=== PATIENT | female | born 1955 | race Caucasian/White ===

== ENCOUNTER 2017-11-08 11:43 | Observation (INO) | payer BC ==
[2017-11-08] MEDS ORDERED: NS 0.9% 1000 ML* 1,000 ML IV ONE (12:43)
--- NOTE | 2017-11-08 13:46 | RAD ---
HISTORY: Chest pain COMPARISONS: CT dated February 17, 2014 VIEWS: 1: frontal portable view of the chest at 12:54 PM FINDINGS: LINES AND TUBES: None. CARDIOMEDIASTINAL SILHOUETTE: The cardiomediastinal silhouette is normal for portable technique. PLEURA: The costophrenic angles are sharp. No pleural abnormalities are noted. LUNG PARENCHYMA: There is stable right upper lung nodule. There is minimal patchy alveolar opacification of the left lung base. ABDOMEN: The upper abdomen is clear. There is no subphrenic gas. BONES AND SOFT TISSUES: No bone or soft tissue abnormalities are noted. IMPRESSION: 1. STABLE RIGHT UPPER LUNG NODULE. 2. PATCHY AIRSPACE DISEASE OF THE LEFT LUNG BASE
[2017-11-08 14:00] LABS: ABS Basophils 0 10^3/ul (0-0.2); ABS Eosinophils 0.1 10^3/ul (0-0.6); ABS Lymphocytes 1.6 10^3/ul (1.0-4.8); ABS Monocytes 0.6 10^3/ul (0-0.8); ABS Neutrophils 3.2 10^3/ul (1.5-7.7); ABS Nucleated RBC 0.02 10^3/ul; Hematocrit 42 % (35-47); Hemoglobin 14.1 g/dl (12.0-16.0); Lymphocyte % 29.6 % (25-47); Mean Corpuscular HGB Conc 34 g/dl (31-36); Mean Corpuscular Hemoglobin 30 pg (27-31); Mean Corpuscular Volume 90 fL (80-97); Mean Platelet Volume 8 um3 (7.4-10.4); Nucleated Red Blood Cells % 0.3; Platelet Count 317 10^3/ul (150-450); Red Blood Count 4.63 10^6/ul (4.0-5.4); Red Cell Distribution Width 14 % (10.5-15); White Blood Count 5.5 10^3/ul (3.5-10.8)
[2017-11-08 14:02] LABS: Urine Appearance Clear; Urine Blood Negative (Negative); Urine Color Straw; Urine Ketones Negative (Negative); Urine Protein Negative (Negative); Urine Specific Gravity 1.005 (1.010-1.030); Urine Urobilinogen Negative (Negative)
[2017-11-08 14:15] LABS: INR 0.95 (0.77-1.02)
[2017-11-08 14:17] LABS: EGFR Non-African American 61.5 (>60)
[2017-11-08] MEDS ORDERED: Iohexol 300* (CONTRAST) 10 ML SDV IV ONE (14:27)
--- NOTE | 2017-11-08 15:11 | RAD ---
INDICATION: Abdominal distention and pain. COMPARISON: Comparison is made with a prior PET/CT study from February 24, 2014. TECHNIQUE: A CT scan of the abdomen and pelvis was performed with intravenous and oral contrast following intravenous injection of 139 ml of Omnipaque 300 nonionic contrast. Contiguous axial sections were obtained from the lung bases through the symphysis pubis. Images were reconstructed in the coronal and sagittal planes. FINDINGS: The lung bases are clear. No pleural effusion is present. The liver and spleen are normal in size. The liver is decreased in attenuation consistent with fatty infiltration. There is a small nonspecific fluid density lesion in the posterior segment of the right hepatic lobe measuring 0.9 x 0.5 cm in size. This is too small to characterize by CT although likely represents a cyst. There are gallstones present. No gallbladder wall thickening or pericholecystic fluid is seen. The pancreas appears to be within normal limits. There is a small left adrenal lesion measuring 1.1 x 0.9 cm in size which is unchanged from the prior PET/CT study. This was not PET avid and would be most consistent with an adenoma. The kidneys are normal in size. No significant focal renal abnormality or hydronephrosis is seen. No bladder calculi are noted. The aorta is normal in caliber with mild calcific plaque present. No significant enlarged retroperitoneal lymph nodes are seen. The stomach, small and large bowel appear nondistended. The appendix is not visualized. There is mild sigmoid diverticulosis. There is no evidence for diverticulitis or colitis. The patient is status post hysterectomy. No free intraperitoneal air or fluid is seen. No significant focal osseous abnormality is seen. IMPRESSION: 1. CHOLELITHIASIS WITHOUT EVIDENCE FOR ACUTE CHOLECYSTITIS. 2. HEPATIC STEATOSIS. 3. STATUS POST HYSTERECTOMY. 4. STABLE LEFT ADRENAL NODULE.
[2017-11-08] MEDS ORDERED: Aspirin Low Dose CHEW TAB* 81 MG PO ONE (15:35)
[2017-11-08] MEDS ORDERED: Metoprolol Tartrate TAB* 25 MG PO ONE (16:20)
[2017-11-08] MEDS ORDERED: Nitroglycerin TAB 0.4 MG* 0.4 MG TAB SL ONE (16:32)
--- NOTE | 2017-11-08 16:42 | ADMNOTE ---
Subjective Date of Service: 11/08/17 Interval History: ADMISSION HISTORY AND PHYSICAL EXAM: Allergies Allergy/AdvReac Type Severity Reaction Status Date / Time No Known Allergies Allergy Verified 02/17/14 08:25 Home Medications Medication Instructions Recorded Confirmed Type Glucosamine Sulfate 100 mg PO QPM 02/16/13 11/08/17 History Hydrochlorothiazide TAB* 25 mg PO DAILY 02/16/13 11/08/17 History [Hydrodiuril TAB*] Losartan TAB* [Cozaar TAB*] 100 mg PO DAILY 02/16/13 11/08/17 History Montelukast Sodium TAB* [Singulair 10 mg PO BEDTIME 02/16/13 11/08/17 History TAB*] Aspirin EC Low Dose* [Ecotrin EC 81 mg PO DAILY 11/08/17 11/08/17 History Low Dose 81 MG*] Fluticasone HFA 110 mcg(NF) 1 puff INH BID 11/08/17 11/08/17 History [Flovent HFA 110 mcg(NF)] Multivitamins/Minerals TAB* 1 tab PO DAILY 11/08/17 11/08/17 History [Theragran/minerals TAB*] Nisoldipine ER (NF) [Sular (NF)] 34 mg PO DAILY 11/08/17 11/08/17 History Potassium Chloride [Potassium 48 meq PO DAILY 11/08/17 11/08/17 History Chloride ER] Simvastatin TAB(NF) [Zocor(NF)] 20 mg PO DAILY 11/08/17 11/08/17 History HPI: 1 1/2 weeks abd bloating. Continues to work at cleaning houses, worked today. Not related to eating, activity, sleep. Sleeps flat with one pillow. Occ bad taste in her mouth. 15 minutes BL neck pressure/discomfort in ED. Family History: Findings - unremarkable Social History: Findings - Lives alone. Son Rajiv is her SDM. 4 children. No alcohol or tobacco use. Past Medical History: Findings - x4, hysterecomy, R ankle surgery. LBBB for many yrs, sees Dr. Villalobos Review of Systems - Measurements Intake and Output: Intake and Output Last 24 Hours 11/06/17 11/07/17 11/08/17 11/09/17 06:59 06:59 06:59 06:59 Weight 230 lb Objective Active Medications: Aspirin (Aspirin Ec Low Dose*) 81 mg PO DAILY [facility] Aspirin (Aspirin Low Dose Tab*) 81 mg PO DAILY [facility] Enoxaparin Sodium (Lovenox(*)) 40 mg SUBCUT Q24H [facility] Fluticasone Propionate (Flovent Hfa 110 Mcg(Nf)) 1 puff INH BID [facility] Hydrochlorothiazide (Hydrodiuril Tab*) 25 mg PO DAILY [facility] Sodium Chloride (Ns 0.9% 1000 Ml*) 1,000 mls @ 200 mls/hr IV ED ONCE ONE Stop: 11/08/17 17:42 Last Admin: 11/08/17 13:48 Dose: 200 mls/hr Losartan Potassium (Cozaar Tab*) 100 mg PO DAILY [facility] Montelukast Sodium (Singulair Tab*) 10 mg PO BEDTIME [facility] Nisoldipine (Sular (Nf)) 34 mg PO DAILY [facility] Simvastatin (Zocor(Nf)) 20 mg PO BEDTIME [facility] Vital Signs - 8 hr 11/08/17 11/08/17 11/08/17 11:43 12:04 12:06 Temperature 97.4 F Pulse Rate 103 93 91 Respiratory 20 12 13 Rate Blood Pressure 192/94 135/65 (mmHg) O2 Sat by Pulse 99 97 98 Oximetry 11/08/17 11/08/17 11/08/17 12:30 13:00 14:00 Temperature Pulse Rate 85 83 88 Respiratory 14 10 14 Rate Blood Pressure 138/61 138/77 (mmHg) O2 Sat by Pulse 93 98 99 Oximetry 11/08/17 11/08/17 11/08/17 14:41 14:55 15:00 Temperature Pulse Rate 90 105 Respiratory 16 20 Rate Blood Pressure 153/71 146/61 (mmHg) O2 Sat by Pulse 91 98 Oximetry Result Diagrams: 11/08/17 13:50 11/08/17 13:50 Assess/Plan/Problems-Billing Assessment: - Patient Problems (1) Chest pain Current Visit: Yes Status: Acute Code(s): R07.9 - CHEST PAIN, UNSPECIFIED SNOMED Code(s): 60891534 Comment: Atypical pain. Sedentary life style. Tele, second troponin, nuclear stress test 11/09. (2) Asthma Current Visit: Yes Status: Acute Code(s): J45.909 - UNSPECIFIED ASTHMA, UNCOMPLICATED SNOMED Code(s): 024292438 Comment: Stable. Continue home meds. (3) Morbid obesity Current Visit: Yes Status: Acute Code(s): E66.01 - MORBID (SEVERE) OBESITY DUE TO EXCESS CALORIES SNOMED Code(s): 166828697 Comment: BMI 40.3. (4) HTN (hypertension) Current Visit: Yes Status: Acute Code(s): I10 - ESSENTIAL (PRIMARY) HYPERTENSION SNOMED Code(s): 16868229 Comment: Continue home meds.
[2017-11-08] MEDS ORDERED: Enoxaparin(*) 40 MG/0.4 ML SYR SUBCUT SCH (17:00)
[2017-11-08] MEDS ORDERED: Aspirin Low Dose CHEW TAB* 81 MG ONE (17:07)
[2017-11-08] MEDS ORDERED: Mometasone 220 MCG MDI INH SCH (18:00)
[2017-11-08] MEDS: Omeprazole CAP* 20 MG PO SCH (19:36)
[2017-11-08] MEDS ORDERED: NS 0.9% 500 ML* 500 ML IV ONE (20:53)
[2017-11-08] MEDS ORDERED: NS 0.9% 1000 ML* 1,000 ML IV SCH (21:00)
[2017-11-08] MEDS ORDERED: Montelukast Sodium TAB* 10 MG PO SCH (21:00)
[2017-11-08] MEDS ORDERED: Atorvastatin* 10 MG TAB PO SCH (21:00)
[2017-11-09] MEDS: Omeprazole CAP* 20 MG PO SCH (05:07)
[2017-11-09] MEDS ORDERED: NISOLDIPINE 17 MG PO SCH (09:00)
[2017-11-09] MEDS ORDERED: Aspirin Low Dose CHEW TAB* 81 MG PO SCH (09:00)
[2017-11-09] MEDS ORDERED: Losartan TAB* 25 MG PO SCH (09:00)
[2017-11-09] MEDS ORDERED: Hydrochlorothiazide TAB* 25 MG PO SCH (09:00)
[2017-11-09] MEDS ORDERED: Aspirin EC Low Dose* 81 MG TAB.EC PO SCH (09:00)
--- NOTE | 2017-11-09 11:39 | RAD ---
Edited for charges. INDICATION: Chest pressure. COMPARISON: There are no prior studies available for comparison. Technique: A single day myocardial perfusion stress study was performed. Initially the resting study was performed. The patient was given an intravenous injection of 10.0 mCi of technetium 99m tetrofosmin and and the heart was imaged in multiple projections. The patient returned later in the day and under the direction of Dr. Diallo, the patient was given intervenous injection of Lexiscan. Subsequently the patient was given intravenous injection of 25.3 mCi of technetium 99m tetrofosmin and the heart was imaged in multiple projections. Images were reconstructed in the axial, sagittal and coronal planes and in a 3- D format. FINDINGS: There appears slight hypokinesis within the septum. The left ventricular ejection fraction is calculated to be 64%. Review of the images demonstrates a small area of decreased activity in the anterior wall on the post pharmacologic stress images which appears improved on the resting set of images suggesting the possibility of a small area of ischemia. There is mild decreased activity in the septum which is persistent on both the post pharmacologic stress and resting images consistent with either attenuation artifact or an infarct. IMPRESSION: 1. POSSIBLE SMALL AREA OF ISCHEMIA IN THE ANTERIOR WALL. 2. DECREASED ACTIVITY IN THE SEPTUM CONSISTENT WITH ATTENUATION ARTIFACT OR AN INFARCT. ASSESSMENT: Low risk. Based on imaging criteria from ACC/AHA 2002 Guideline Update for the Management of Patients With Chronic Stable Angina Table 23. Noninvasive Risk Stratification. MTDD
[2017-11-09 12:24] VITALS: BP 137/71
[2017-11-09] MEDS ORDERED: NON FORMULARY MED 1 DOSE DOSE PO SCH (13:00)
[2017-11-09] MEDS ORDERED: Regadenoson* 0.4 MG/5 ML SYRINGE ONE (13:55)
--- NOTE | 2017-11-10 04:10 | DS ---
CC: Dr. Blanton; Dr. Vilallobos DISCHARGE SUMMARY: DATE OF ADMISSION: DATE OF DISCHARGE: 11/09/17 HOSPITAL COURSE: This 62-year-old woman came to the emergency room because of 1 - 1/2 weeks of abdominal bloating. 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 The discomfort was not related to any activity or sleep. She slept flat with a pillow. While in the emergency room, she had feeling of pressure or discomfort or pain on both sides of her neck rising up into her jaw; this lasted about 15 minutes. I note that she has had left bundle branch block for many years and is followed by Dr. Villalobos for this. She has had stress test every 2 years, although it has been about 2-1/2 years since her last stress test. The patient of course was still in left bundle branch block. She was admitted to the telemetry unit. Two troponin levels were drawn, both within normal limits. She was given omeprazole on the day of admission as well as the day of discharge. The sensation in her neck did not come back. She felt mild discomfort in her stomach; it was much improved. She underwent a pharmacologic nuclear stress test. There was a question of small defect in the anterior wall, ejection fraction was normal. I suspect the small defect is artifact rather than an ischemic or infarcted area. The patient was given a prescription for 30 days of omeprazole, 20 mg daily without refills. She will follow up with Dr. Blatnon and Dr. Villalobos. FINAL DIAGNOSES: 1. Atypical neck pain and abdominal pain, possible gastrointestinal origin. 2. Asthma. 3. Morbid obesity. 4. Hypertension. DISCHARGE MEDICATIONS: 1. Omeprazole 20 mg daily. 2. Glucosamine 100 mg h.s. 3. Montelukast 10 mg h.s. 4. Losartan 100 mg daily. 5. Hydrochlorothiazide 25 mg daily. 6. Aspirin 81 mg daily. 7. Fluticasone 110 mcg inhaler 1 puff b.i.d. 8. Nisoldipine 34 mg daily. 9. Multivitamin with mineral 1 daily. 10. Potassium chloride as prescribed. 11. Simvastatin 20 mg daily. [id number]/[facility] #: [id number] [facility]
--- NOTE | 2017-11-15 10:33 | ED ---
Ed Stauffer Sixian, scribed for Israel Lopez MD on 11/08/17 at 1318 . GI/ HPI - HPI Summary HPI Summary: This patient is a 62 year old F presenting to [facility] with a chief complaint of intermittent indigestion since a week ago. The patient rates the pain 2/10 in severity. Symptoms aggravated and alleviated by nothing. Patient reports upper abdomen bloating, strange uncomfortable feeling through my neck and left shoulder, diarrhea (3 days ago), sinus congestion, and rhinorrhea. Patient denies fever, chills, N/V, blood in the stools, melena, dysuria, SOB, dizziness , lightheadedness, palpitations, and weight change. She reports her BM are pretty much normal. Last colonoscopy was 12 years ago, and she has one scheduled in December. - History of Current Complaint Chief Complaint: EDChestWallPain Time Seen by Provider: 11/08/17 12:30 Stated Complaint: CHEST ABD PAIN, NECK AND SHOLDER PAIN Hx Obtained From: Patient Onset/Duration: Started Weeks Ago - 1, Still Present Timing: Constant Pain Intensity: 2 - /10 Associated Signs and Symptoms: Positive: Other: - upper abdomen bloating, strange uncomfortable feeling through my neck and left shoulder, diarrhea (3 days ago), sinus congestion, and rhinorrhea. Patient denies fever, chills, N/V, blood in the stools, melena, dysuria, SOB, dizziness, lightheadedness, palpitations, and weight change. Aggravating Factor(s): Nothing Alleviating Factor(s): Nothing - Allergy/Home Medications Allergies/Adverse Reactions: Allergies Allergy/AdvReac Type Severity Reaction Status Date / Time No Known Allergies Allergy Verified 02/17/14 08:25 Home Medications: Home Medications Aspirin EC Low Dose* [Ecotrin EC Low Dose 81 MG*] 81 mg PO DAILY 11/08/17 [ History Confirmed 11/08/17] Fluticasone HFA 110 mcg(NF) [Flovent HFA 110 mcg(NF)] 1 puff INH BID 11/08/17 [ History Confirmed 11/08/17] Multivitamins/Minerals TAB* [Theragran/minerals TAB*] 1 tab PO DAILY 11/08/17 [ History Confirmed 11/08/17] Nisoldipine ER (NF) [Sular (NF)] 34 mg PO DAILY 11/08/17 [History Confirmed ] Potassium Chloride [Potassium Chloride ER] 48 meq PO DAILY 11/08/17 [History Confirmed 11/08/17] Simvastatin TAB(NF) [Zocor(NF)] 20 mg PO DAILY 11/08/17 [History Confirmed 11/08] PMH/Surg Hx/FS Hx/Imm Hx Endocrine/Hematology History: Denies: Hx Anticoagulant Therapy, Hx Diabetes, Hx Thyroid Disease Cardiovascular History: Reports: Hx Hypertension Denies: Hx Pacemaker/ICD Respiratory History: Reports: Hx Asthma History: Denies: Hx Renal Disease Neurological History: Denies: Hx Dementia, Hx Seizures Psychiatric History: Denies: Hx Substance Abuse - Cancer History Hx Chemotherapy: No Hx Radiation Therapy: No - Surgical History Surgery Procedure, Year, and Place: HYSTERECTOMY 1994,RIGHT LEG 2010, 4 C SECTION Infectious Disease History: No Infectious Disease History: Denies: Hx Hepatitis, Hx Human Immunodeficiency Virus (HIV), Traveled Outside the [place] in Last 30 Days - Family History Known Family History: Positive: Other - Skin cancer, irregular - Social History Alcohol Use: None Hx Substance Use: No Substance Use Type: Reports: None Hx Tobacco Use: No Smoking Status (MU): Never Smoked Tobacco Review of Systems Constitutional: Negative - weight change Negative: Fever, Chills Negative: Palpitations Positive: Other - sinus congestion, and rhinorrhea. Negative: Shortness Of Breath Gastrointestinal: Other - upper abdomen bloating Positive: Diarrhea. Negative: Vomiting, Nausea Positive: other - NEGATIVE: blood in the stools, melena. Negative: dysuria Neurological: Negative - dizziness, lightheadedness All Other Systems Reviewed And Are Negative: Yes Physical Exam Triage Information Reviewed: Yes Vital Signs On Initial Exam: Initial Vitals Temp Pulse Resp BP Pulse Ox 97.4 F 103 20 192/94 99 11/08/17 11:43 11/08/17 11:43 11/08/17 11:43 11/08/17 11:43 11/08/17 11:43 Vital Signs Reviewed: Yes Appearance: Positive: Well-Appearing, No Pain Distress Skin: Positive: Warm, Skin Color Reflects Adequate Perfusion Head/Face: Positive: Normal Head/Face Inspection Eyes: Positive: EOMI Neck: Positive: Nontender Respiratory/Lung Sounds: Positive: Clear to Auscultation, Breath Sounds Present Cardiovascular: Positive: RRR. Negative: Murmur Abdomen Description: Positive: Distended Musculoskeletal: Positive: Strength/ROM Intact Neurological: Positive: Sensory/Motor Intact, Alert, Oriented to Person Place, Time, CN Intact II-III Psychiatric: Positive: Normal - [place] Coma Scale Best Eye Response: 4 - Spontaneous Best Motor Response: 6 - Obeys Commands Best Verbal Response: 5 - Oriented Coma Scale Total: 15 Diagnostics - Vital Signs Vital Signs Temp Pulse Resp BP Pulse Ox 11/08/17 12:06 91 13 135/65 98 11/08/17 12:04 93 12 97 11/08/17 11:43 97.4 F 103 20 192/94 99 - Laboratory Result Diagrams: 11/08/17 13:50 11/08/17 13:50 Lab Statement: Any lab studies that have been ordered have been reviewed, and results considered in the medical decision making process. - Radiology CXR Radiology Interpretation Completed By: Radiologist - 1. STABLE RIGHT UPPER LUNG NODULE. 2. PATCHY AIRSPACE DISEASE OF THE LEFT LUNG BASE ED physician has reviewed this radiology report. - CT A/P CT Interpretation Completed By: Radiologist - 1. CHOLELITHIASIS WITHOUT EVIDENCE FOR ACUTE CHOLECYSTITIS. 2. HEPATIC STEATOSIS. 3. STATUS POST HYSTERECTOMY. 4. STABLE LEFT ADRENAL NODULE. ED physician has reviewed this radiology report. - EKG 1256 Cardiac Rate: NL EKG Rhythm: Sinus Rhythm - 81 BPM EKG Interpretation: An EKG reveals LBBB and negative for STEMI. GIGU Course/Dx - Course Course Of Treatment: 62 yr female with chest dyscomfort today that is now gone. She has gallstones. She has some airspace findings on chest xray. She feels indegestion and bloated. Baseline she has a LBBB. - Diagnoses Provider Diagnoses: Chest pain, Gallstones, Hypertension - Physician Notifications Discussed Care Of Patient With: Biju Ballard Time Discussed With Above Provider: 15:56 Instructed by Provider To: Other - Agrees to admit. Discharge - Discharge Plan Condition: Good Disposition: ADMITTED TO [facility] Referrals: Homer Blanton MD [Primary Care Provider] - The documentation as recorded by the Ed perez Sixian accurately reflects the service I personally performed and the decisions made by me, Israel Lopez MD.
== END 2017-11-09 14:18 | disposition home or self-care (01) ==
LOC: ED 11:43 → MEDTELE 16:27
PROVIDERS: ADMIT Internal Medicine; ATTEND Internal Medicine
DX: M54.2 Cervicalgia (principal); K80.20 Calculus of gallbladder without cholecystitis without obstruction; K76.0 Fatty (change of) liver, not elsewhere classified; R10.9 Unspecified abdominal pain; J45.909 Unspecified asthma, uncomplicated; E66.01 Morbid (severe) obesity due to excess calories; I10 Essential (primary) hypertension; Z79.82 Long term (current) use of aspirin; Z79.899 Other long term (current) drug therapy; Z90.710 Acquired absence of both cervix and uterus
CPT/HCPCS: 36415; 71010; 74177; 78452; 80053; 81003; 83605; 83690; 83735; 83880; 84484; 85025; 85379; 85610; 86140; 87040; 93005; 93017; 96360; 99284; A9270-GY; A9502; G0378; J1650; J2785; Q9967